=== PATIENT | male | born 1980 | race Caucasian/White ===

== ENCOUNTER 2022-08-31 14:11 | Emergency (ER) | payer OTHER, BC ==
[~2022-08-31] VITALS: Ht 195.6 cm; Wt 122.5 kg
[2022-08-31] MEDS ORDERED: KETOROLAC TROMETHAMINE 60 MG/2 ML VIAL IM ONE (15:00)
[2022-08-31] MEDS ORDERED: KETOROLAC TROMETHAMINE 60 MG/2 ML VIAL ONE (15:19)
[2022-08-31] MEDS ORDERED: MUPIROCIN 2% OINT 22 GM TUBE TOP ONE (15:45)
[2022-08-31] MEDS ORDERED: CLEOCIN HCL300 MG PO (16:00)
[2022-08-31] MEDS ORDERED: BACITRACIN ZINC 0.9GM TP ONE (16:01)
[2022-08-31] MEDS ORDERED: ULTRAM 50MG50 MG PO (16:01)
== END 2022-08-31 16:17 | disposition home or self-care (01) ==
LOC: FSED 14:15
DX: S01.21XA Laceration without foreign body of nose, initial encounter (principal); W20.8XXA Other cause of strike by thrown, projected or falling object, initial encounter; Y99.0 Civilian activity done for income or pay; R03.0 Elevated blood-pressure reading, without diagnosis of hypertension
CPT/HCPCS: 12011; 99283; J1885

== ENCOUNTER 2022-09-05 10:08 | Emergency (ER) | payer OTHER, BC ==
[~2022-09-05] VITALS: Ht 195.6 cm; Wt 123.5 kg
[~2022-09-05 10:08] MED LIST: CLEOCIN HCL300 MG PO; ULTRAM 50MG50 MG PO
== END 2022-09-05 10:26 | disposition home or self-care (01) ==
LOC: FSED 10:11
DX: Z48.02 Encounter for removal of sutures (principal); R03.0 Elevated blood-pressure reading, without diagnosis of hypertension
CPT/HCPCS: S0630